=== PATIENT | female | born 1960 | race Hispanic/Latino ===

== ENCOUNTER 2018-08-12 13:57 | Outpatient (CLI) | payer MEDICARE, OTHER | END 2018-08-12 13:58 | disposition home or self-care (01) | LOC: RAD 13:57 ==

== ENCOUNTER 2018-09-16 10:21 | Outpatient (CLI) | payer MEDICARE, OTHER | END 2018-09-16 10:22 | disposition home or self-care (01) | LOC: LAB 10:21 ==

== ENCOUNTER 2018-11-01 12:58 | Outpatient (CLI) | payer MEDICARE, OTHER | END 2018-11-01 12:59 | disposition home or self-care (01) | LOC: LAB 12:58 ==

== ENCOUNTER 2018-12-23 12:09 | Outpatient (CLI) | payer MEDICARE, OTHER | END 2018-12-23 12:10 | disposition home or self-care (01) | LOC: RAD 12:09 ==